=== PATIENT | female | born 1960 | race Caucasian/White ===

== ENCOUNTER 2018-07-22 11:04 | Inpatient (IN) | payer MEDICARE, OTHER ==
[~2018-07-22] VITALS: Ht 157.5 cm; Wt 75.3 kg
[~2018-07-22 11:04] MED LIST: BENA20TA77 PO
[2018-07-22] MEDS ORDERED: GLIP5TAB12 PO (11:22)
[2018-07-22] MEDS ORDERED: MECL-127 PO (11:22)
[2018-07-22] MEDS ORDERED: HYDR25TA PO (11:22)
[2018-07-22] MEDS ORDERED: VIT1TABL86 PO (11:22)
[2018-07-22] MEDS ORDERED: ATOR10TA69 PO (11:22)
[2018-07-22] MEDS ORDERED: CLOP75TA16 PO (11:22)
[2018-07-22 11:48] LABS: BASOPHILS % 1.1 % (0.0-2.0); EOSINOPHILS % 2.1 % (0.0-5.0); HEMATOCRIT. 41.5 % (36.0-48.0); HEMOGLOBIN. 13.7 g/dL (12.0-16.0); LYMPHOCYTES % 27.1 % (20.0-50.0); MEAN CORPUSCULAR HEMOGLOBIN 25.5 pg (28.0-32.0); MEAN CORPUSCULAR VOLUME 77.6 fL (81.0-99.0); MEAN PLATELET VOLUME 8.9 fl (7.4-10.4); MONOCYTES % 7.4 % (2.0-8.0); NEUTROPHILS % 62.3 % (40.0-76.0); PLATELET 244 x1000/uL (130-400); RED BLOOD CELL COUNT 5.35 mill/uL (4.2-5.4); RED CELL DISTRIBUTION WIDTH 13.9 % (11.6-14.6)
[2018-07-22 11:54] LABS: CHLORIDE 100 mEq/L (98-107)
[2018-07-22 11:57] LABS: INR 1.1; PARTIAL THROMBOPLASTIN TIME 27.4 sec (23.4-31.0)
[2018-07-22] MEDS ORDERED: IOHEXOL-350 100 ML BOTTLE ONE (12:54)
[2018-07-22] MEDS ORDERED: ASPIRIN 325MG EC TABLET PO ONE (13:45)
[2018-07-22 16:00] VITALS: BP 137/69
[2018-07-22 16:39] VITALS: BP 137/69
[2018-07-22] MEDS ORDERED: DOCUSATE SODIUM 100MG CAPSULE PO PRN (17:15)
[2018-07-22] MEDS ORDERED: HYDROCODONE/ACETAMINOPHEN 5/325MG TABLET PO PRN (17:15)
[2018-07-22] MEDS ORDERED: ONDANSETRON HCL 4MG/2ML INJ IV PRN (17:15)
[2018-07-22] MEDS ORDERED: ACETAMINOPHEN 325MG TABLET PO PRN (17:15)
[2018-07-22] MEDS ORDERED: CLONIDINE 0.1MG TABLET PO PRN (17:15)
[2018-07-22] MEDS: CLOPIDOGREL 75MG TABLET PO SCH (18:44)
[2018-07-22 20:00] VITALS: BP 151/61
[2018-07-23] VITALS: BP 135/61
[2018-07-23 04:00] VITALS: BP 124/58
[2018-07-23 06:23] LABS: BASOPHILS % 0.7 % (0.0-2.0); EOSINOPHILS % 3.6 % (0.0-5.0); HEMATOCRIT. 39.6 % (36.0-48.0); HEMOGLOBIN. 13.2 g/dL (12.0-16.0); LYMPHOCYTES % 41.3 % (20.0-50.0); MEAN CORPUSCULAR HEMOGLOBIN 25.6 pg (28.0-32.0); MEAN PLATELET VOLUME 9.2 fl (7.4-10.4); MONOCYTES % 8.6 % (2.0-8.0); NEUTROPHILS % 45.8 % (40.0-76.0); PLATELET 235 x1000/uL (130-400); RED BLOOD CELL COUNT 5.14 mill/uL (4.2-5.4); RED CELL DISTRIBUTION WIDTH 14.1 % (11.6-14.6)
[2018-07-23 06:35] LABS: CHLORIDE 101 mEq/L (98-107)
[2018-07-23 06:51] LABS: LDL CHOLESTEROL 109 mg/dL (5-100)
[2018-07-23 06:52] LABS: HDL CHOLESTEROL 34 mg/dL (40-59)
[2018-07-23 08:00] VITALS: BP 160/70
[2018-07-23] MEDS: CLOPIDOGREL 75MG TABLET PO SCH (08:36)
[2018-07-23] MEDS ORDERED: AMLODIPINE 10MG TABLET PO SCH (09:00)
[2018-07-23] MEDS ORDERED: ASPIRIN 81MG EC TABLET PO SCH (09:00)
[2018-07-23] MEDS ORDERED: DEXTROSE 50% WATER 50ML SYRINGE IV PRN (11:00)
[2018-07-23 12:00] VITALS: BP 120/64
[2018-07-23] MEDS ORDERED: BLOOD SUGAR DIAGNOSTIC STRIP TEST SCH (12:20)
[2018-07-23] MEDS ORDERED: INSULIN LISPRO 100 UNITS/ML SUBCUT SCH (12:50)
[2018-07-23 16:00] VITALS: BP 128/64
[2018-07-23 17:06] VITALS: BP 128/64
== END 2018-07-23 17:40 | disposition home health service (06) | DRG 69 ==
LOC: ER 11:04 → 6WST 14:03 → ENRESERV 14:50
PROVIDERS: ADMIT Hospitalist; ATTEND Hospitalist
DX: G45.9 Transient cerebral ischemic attack, unspecified (principal); E78.00 Pure hypercholesterolemia, unspecified; I10 Essential (primary) hypertension; E78.5 Hyperlipidemia, unspecified; E11.9 Type 2 diabetes mellitus without complications; Z86.73 Personal history of transient ischemic attack (TIA), and cerebral infarction without residual deficits; Z79.899 Other long term (current) drug therapy
CPT/HCPCS: 36415; 70450; 70496; 70498; 70551; 71045; 80053; 80061; 82962; 84484; 85025; 85610; 85730; 93005; 93306; 93970; 97162; 99285; J7030; Q9967

== ENCOUNTER 2018-09-13 10:08 | Emergency (ER) | payer MEDICARE ==
[~2018-09-13] VITALS: Ht 157.5 cm; Wt 77.0 kg
[~2018-09-13 10:08] MED LIST changes: +ATOR10TA69 PO; +CLOP75TA16 PO; +GLIP5TAB12 PO; +HYDR25TA PO; +MECL-127 PO; +VIT1TABL86 PO
[2018-09-13 12:08] VITALS: BP 149/78
== END 2018-09-13 13:00 | disposition home or self-care (01) ==
LOC: ER 12:40
DX: L76.34 Postprocedural seroma of skin and subcutaneous tissue following other procedure (principal); E11.9 Type 2 diabetes mellitus without complications; I10 Essential (primary) hypertension; Z86.73 Personal history of transient ischemic attack (TIA), and cerebral infarction without residual deficits
CPT/HCPCS: 99281